=== PATIENT | male | born 2000 | race Caucasian/White ===

== ENCOUNTER 2020-08-15 07:08 | Emergency (ER) | payer OTHER, SELFPAY ==
[2020-08-15 07:31] VITALS: BP 128/77; PULSE 80; RESP 18; TEMP 37; O2SAT 98; BMI 33.9
--- NOTE | 2020-08-15 07:54 | ED_ITS ---
HPI - URI/Sore Throat General Chief Complaint: Upper Respiratory Symptoms Stated Complaint: covid symtoms Time Seen by Provider: 08/15/20 07:54 Source: patient Mode of arrival: ambulatory Limitations: no limitations History of Present Illness HPI Narrative: headache, cough, sore throat all started yesterday. MD elicited complaint: fever, cough and sore throat Onset (ago): day(s) Severity: mild Exacerbating factors: nothing Associated symptoms: fever, chills, headache, nasal congestion and sore throat Related Data Allergies Allergy/AdvReac Type Severity Reaction Status Date / Time No Known Allergies Allergy Verified 08/15/20 07:34 [No Known Allergies*] Review of Systems Constitutional: Constitutional: Reports no additional constitutional complaints Eyes: Eyes: Reports no additional eye complaints ENT: Denies dizziness Cardiovascular: Cardiovascular: Reports no additional cardiovascular complaints Respiratory: Respiratory: Reports as per HPI Gastrointestinal: Gastrointestinal: Reports no additional gastrointestinal complaints Musculoskeletal: Musculoskeletal: Reports no additional musculoskeletal complaints Integumentary/Breasts: Skin/Breast: Denies rash Neurologic: Reports system reviewed and no additional complaints, except as documented, Denies dizziness and Denies Sensory deficit (Neuro) Psychiatric: Psychiatric: Denies anxiety [facility] Past Medical History Medical History Asthma Surgical History No significant past surgical history Social History Social History Advance Directives: No Advance Directives Information Provided: No Physical Exam Vital Signs: Vital Signs: Last Vital Signs Temp 98.6 F 08/15/20 07:31 Pulse 80 08/15/20 07:31 Resp 18 08/15/20 07:31 BP 128/77 08/15/20 07:31 Pulse Ox 98 08/15/20 07:31 Body Mass Index 33.9 Const: General: healthy appearing Nutritional Appearance: average body habitus Orientation/consciousness: oriented to person and patient oriented x3 Limitations: no limitations HENMT: Other: Pharynx red Head: Yes normal to inspection Ears: external ears normal General nose exam: Normal external nose present Throat: Yes posterior oropharynx normal Eyes: General: appearance normal, both eyes and all related structures Neck: Other: supple Neck: Yes normal visual inspection Chest: Chest palpation & inspection: normal inspection of the chest Resp: Auscultation: clear to auscultation bilaterally Cardio: Jugular venous distension: no JVD Rate: regular rate Rhythm: regular rhythm Heart sounds: S1 normal heart sound present and S2 normal heart sound present GI: Inspection: Yes normal to inspection Palpation (GI): Soft to palpation, nontender and No hepatosplenomegaly present Auscultation: normal bowel sounds : General: Yes no CVA tenderness Back/Spine/Pelvis: Back: no CVA tenderness Skin: General skin exam: no rashes or lesions noted Neuro: General: oriented to person and patient oriented x3 Cranial nerves: Yes CN's II-XII intact bilaterally Motor exam (neuro): 5/5 motor strength present throughout Sensory Exam: No Sensory deficit (Neuro) Extrem: General: Yes normal to inspection Psych: Appearance: grossly normal Course Course Course Narrative: patient with likely COVID MDM - URI/Sore Throat MDM Narrative Medical decision making narrative: COVID Differential Diagnosis Differential diagnosis: Likely upper respiratory infection Discharge Plan Discharge Clinical Impression: COVID-19 Patient Disposition: Home, Self-Care Instructions: COVID-19 (Coronavirus Disease 2019) (ED) Additional Instructions: tylenol or motrin for pain Referrals: Physician,Unknown [Primary Care Provider] - 2 days
[2020-08-15 08:42] LABS: COVID-19 Test Negative (Negative)
== END 2020-08-15 08:50 | disposition home or self-care (01) ==
PROVIDERS: Emergency Provider Emergency Medicine
DX: U07.1 COVID-19 (principal); R50.9 Fever, unspecified; R51.9 Headache, unspecified; R05 Cough
CPT/HCPCS: 36415; 87635; 99283

== ENCOUNTER 2024-04-21 21:10 | Emergency (ER) | payer OTHER, SELFPAY ==
--- NOTE | ~2024-04-21 | CT_ITS ---
CLINICAL HISTORY: periumbillical pain CT abdomen and pelvis with contrast Comparison: None Findings: The lung bases are clear. Unremarkable gallbladder and solid organs. No urolithiasis. No bowel obstruction, pneumoperitoneum, or pneumatosis. Mesenteric vessels patent. Pelvic contents unremarkable. Normal appendix. No acute fracture. IMPRESSION: No acute findings. This document has been electronically signed by: Gonzalez Alvarez MD on 04/22/2024 01:06:04
[2024-04-21 21:11] VITALS: BP 115/58; PULSE 94; RESP 24; O2SAT 97; BMI 32.3
[2024-04-21 21:28] LABS: Basophils Absolute Auto 0.1 X10*3/uL (0.0-0.2); Basophils Percent Auto 0.3 % (0-2); Eosinophils Absolute Auto 0.1 X10*3/uL (0.0-0.4); Eosinophils Percent Auto 0.3 % (0-4); Hematocrit 44.5 % (42.0-52.0); Hemoglobin 16.3 g/dl (14.0-18.0); Imm Gran Abs Auto 0.12 X10*3/uL (0.00-0.03); Imm Gran Pct Auto 0.6 % (0.0-0.4); Lymphocytes Absolute Auto 0.8 X10*3/uL (1.2-4.9); Lymphocytes Percent Auto 3.6 % (20-40); MANUAL DIFF FLAG SCAN; Mean Corpuscular HGB Conc 36.6 g/dl (31.0-36.0); Monocytes Absolute Auto 0.9 X10*3/uL (0.1-1.2); Monocytes Percent Auto 4.4 % (2-11); Neutrophils Absolute Auto 19.2 x10*3/uL (2.0-8.3); Neutrophils Percent Auto 90.8 % (45-73); Platelet Count 324 X10*3/uL (160-400); Red Blood Count 5.43 X10*6/uL (4.60-5.80); Red Cell Distribution Width 12.1 % (11.0-16.0); SCAN SMEAR FLAG 1; White Blood Count 21.1 X10*3/uL (4.8-10.8)
[2024-04-21 21:48] LABS: SLIDE REVIEW VERIFIED
[2024-04-21 21:51] LABS: Alanine Aminotransferase 18 U/L (0-40); Albumin Level 4.5 g/dL (3.5-5.0); Alkaline Phosphatase 59 U/L (39-117); Anion Gap 16 (12-20); Aspartate Amino Transferase 27 U/L (5-37); Bilirubin Total 0.9 mg/dL (0.0-1.0); Blood Urea Nitrogen 14 mg/dL (9-16); Calcium 9.5 mg/dL (8.4-10.2); Carbon Dioxide 18 mmol/L (22-29); Chloride 107 mmol/L (96-108); Creatinine Clr Calc Pharmacy 172.6; Estimated Glomerular Filt Rate > 60; Glucose Random 181 mg/dL (60-115); Lipase 12 U/L (8-78); Potassium 3.5 mmol/L (3.3-5.1); Sodium 137 mmol/L (135-145); Total Protein 7.8 g/dL (6.5-8.0)
--- NOTE | 2024-04-21 22:12 | PC.NURSE ---
unable to obtain temp. oral therm not working, pt too diaphoretic for temporal.
[2024-04-21] MEDS: Ondansetron ODT 4 MG TAB.RAPDIS TRANSLINGU (22:28)
[2024-04-22] VITALS: BP 108/59; PULSE 80; RESP 16; TEMP 36.9; O2SAT 99
[2024-04-22] MEDS: Ketorolac Tromethamine 30 MG/ML VIAL IVPUSH (00:12)
[2024-04-22] MEDS: Prochlorperazine Edisylate 10 MG/2 ML VIAL IVPUSH (00:12)
[2024-04-22] MEDS: iohexoL 350 MG/ML 100 ML INFUS..BTL 85 ML IV (00:29)
[2024-04-22] MEDS: Loperamide HCl 2 MG CAPSULE 4 MG PO (00:45)
[2024-04-22] MEDS: 0.9 % Sodium Chloride 1,000 ML 999 ML IVCONT (00:45)
--- NOTE | 2024-04-22 01:30 | ED.NAVMDI ---
HPI - Nausea/Vomiting/Diarrhea General Chief complaint: Nausea/Vomiting/Diarrhea Stated complaint: vomiting Time Seen by Provider: 04/21/24 23:30 Source: patient Mode of arrival: ambulatory Limitations: no limitations History of Present Illness ED Provider: Dr. Deirdre Tomas HPI Narrative: patient comes to the emergency room complaining of diffuse abdominal pain, much worse in the periumbilical area. Patient states that yesterday he had bright stick around 17:30 in shortly after he began having nausea vomiting and diarrhea. Patient states that he is the only 1 who got sick. Patient denies flank pain, denies hematuria or dysuria. Denies chest pain or shortness of breath. Related Data Previous Rx's ?Medication ?Instructions ?Recorded loperamide 2 mg capsule 2 mg PO Q4H PRN loose stool #14 04/22/24 caps ondansetron 4 mg disintegrating 4 mg PO Q6H PRN nausea and 04/22/24 tablet vomiting #14 tabs Allergies Allergy/AdvReac Type Severity Reaction Status Date / Time No Known Allergies Allergy Verified 04/21/24 21:11 [No Known Allergies*] Review of Systems Review of Systems: Constitutional : No Weight loss, No Fever, No Chills, No Night Sweats, No Fatigue, No Malaise ENT/Mouth : No Hearing loss, No Ear Pain, No Nasal Congestion, No Sinus Pain, No Hoarseness, No sore throat, No Rhinorrhea, No Swallowing Difficulty Eyes: No Eye Pain, No Swelling, No Redness, No Foreign Body, No Discharge, No Vision Changes Cardiovascular : No Chest Pain, No SOB, No Dyspnea on Exertion, No Orthopnea, No Edema, No Palpitations Respiratory : No Cough, No Sputum, No Wheezing, No Smoke Exposure, No Dyspnea Gastrointestinal : Complaining of nausea vomiting and diarrhea, complaining of diffuse abdominal pain and cramping Pain, No Hematochezia, No Melena Genitourinary : no irregular bleeding, No Dysuria, No Urinary Frequency, No Hematuria, No Urinary Incontinence, No Urgency, No Flank Pain, No Urinary Flow Changes, No Hesitancy Musculoskeletal : No joint pain, No Myalgias, No Joint Swelling Skin : No Skin Lesions, No rash Neuro : No Weakness, No Numbness, No Paresthesias, No Loss of Consciousness, No Dizziness, No Headache Psych : No Anxiety/Panic, No Depression, No SI/HI/AH/VH, No Social Issues, Heme/Lymph: No Bruising, No Bleeding,No Lymphadenopathy Endocrine : No Polyuria, No Polydipsia, No Temperature Intolerance [facility] Past Medical History Medical History Asthma Surgical History No significant past surgical history Social History Social History Alcohol intake: current Alcohol intake frequency: holidays/special occasions only Smoked in Last 30 Days: No Substance Use Type: Marijuana Advance Directives: No Do you have a plan to hurt others: No Plan Physical Exam Vital Signs: Vital Signs: Last Vital Signs Temp 98.5 F 04/22/24 00:00 Pulse 80 04/22/24 00:00 Resp 16 04/22/24 00:00 BP 108/59 L 04/22/24 00:00 Pulse Ox 99 04/22/24 00:00 O2 Del Method Room Air 04/22/24 00:00 BMI result Body Mass Index 32.3 Const: Other: Appearance: Alert. Oriented X3. No acute distress. Eyes: Pupils equal, round and reactive to light. ENT: Pharynx normal. Neck: Normal inspection. Neck supple. No lymph nodes noted. No crepitus CVS: Normal heart rate and rhythm. Pulses normal. Normal S1 and S2 Respiratory: No respiratory distress. Breath sounds normal. No Wheezing. No rales Abdomen: soft, nondistended, mildly tender to palpation in periumbilical area, no right lower quadrant tenderness, no rebound or guarding. Skin: Skin warm and dry. Normal skin color. Normal skin turgor. Extremities: No lower extremity edema. No Lacerations. No Rash Neuro: Oriented X 3. No motor deficit. No sensory deficit. Moving all extremities. No slurred speech. CN 2 through 12 grossly intact Psych: calm, cooperative, normal affect Medications Administered Discontinued Medications Generic Name Dose Route Start Last Admin Trade Name Freq PRN Reason Stop Dose Admin Sodium Chloride 1,000 mls @ 999 mls/hr 04/21/24 23:56 04/22/24 00:45 Ns IVCONT 04/22/24 00:56 999 mls/hr .Q1H1M ONE Administration Iohexol 85 ml 04/22/24 00:28 04/22/24 00:29 Iohexol 350 Mg/Ml 100 Ml Infus..Btl IV 04/22/24 00:29 85 ml ONCE ONE Administration Ketorolac Tromethamine 30 mg 04/21/24 23:56 04/22/24 00:12 Ketorolac Tromethamine 30 Mg/Ml Vial IVPUSH 04/21/24 23:57 30 mg ONCE ONE Administration Loperamide HCl 4 mg 04/21/24 23:56 04/22/24 00:45 Loperamide Hcl 2 Mg Capsule PO 04/21/24 23:57 4 mg ONCE ONE Administration Ondansetron HCl 4 mg 04/21/24 22:15 04/21/24 22:28 Ondansetron Odt 4 Mg Tab.Rapdis TRANSLINGU 04/21/24 22:16 4 mg ONCE ONE Administration Prochlorperazine Edisylate 10 mg 04/21/24 23:56 04/22/24 00:12 Prochlorperazine Edisylate 10 Mg/2 Ml Vial IVPUSH 04/21/24 23:57 10 mg ONCE ONE Administration Medical Decision Making Medical Decision Making [facility] Narrative: My interpretation of labs: Patient's white blood cell count 21.1, likely reactive leukocytosis. No significant abnormality and chemistry. My interpretation of CT scan, no obvious abnormality. After IV fluids, nausea medication and diarrhea medication, patient feeling much better. In the emergency room patient has not had any episodes of vomiting or diarrhea. Patient states that the abdominal pain significantly improved Differential Diagnosis Differential Diagnoses: The differential diagnosis associated with the presentation includes ( gastroenteritis, enteritis, colitis, appendicitis) Lab Data [facility] Lab Attestation statement: I reviewed the patient's lab results. 04/21/24 21:19 04/21/24 21:19 Labs: Lab Results 04/21/24 Range/Units 21:19 WBC 21.1 H (4.8-10.8) X10*3/uL RBC 5.43 (4.60-5.80) X10*6/uL Hgb 16.3 (14.0-18.0) g/dl Hct 44.5 (42.0-52.0) % MCV 82.0 (80.0-98.0) fL MCH 30.0 (27.0-33.0) pg MCHC 36.6 H (31.0-36.0) g/dl RDW 12.1 (11.0-16.0) % Plt Count 324 (160-400) X10*3/uL MPV 9.0 L (9.4-12.4) fL Immature Gran % (Auto) 0.6 H (0.0-0.4) % Neut % (Auto) 90.8 H (45-73) % Lymph % (Auto) 3.6 L (20-40) % [place] % (Auto) 4.4 (2-11) % Eos % (Auto) 0.3 (0-4) % Baso % (Auto) 0.3 (0-2) % Lymph # (Auto) 0.8 L (1.2-4.9) X10*3/uL [place] # (Auto) 0.9 (0.1-1.2) X10*3/uL Eos # (Auto) 0.1 (0.0-0.4) X10*3/uL Baso # (Auto) 0.1 (0.0-0.2) X10*3/uL Abs Immat Gran (auto) 0.12 H (0.00-0.03) X10*3/uL Absolute Neuts (auto) 19.2 H (2.0-8.3) x10*3/uL Absolute Nucleated RBC 0.000 (0.0-0.012) X10*3/uL Nucleated RBC % (auto) 0.0 (0.0-0.2) /100WBC Smear Tech's Comments VERIFIED Sodium 137 (135-145) mmol/L Potassium 3.5 (3.3-5.1) mmol/L Chloride 107 (96-108) mmol/L Carbon Dioxide 18 L (22-29) mmol/L Anion Gap 16 (12-20) BUN 14 (9-16) mg/dL Creatinine 0.69 (0.5-1.4) mg/dL Estim Creat Clear Calc 172.6 Estimated GFR > 60 Random Glucose 181 H (60-115) mg/dL Calcium 9.5 (8.4-10.2) mg/dL Total Bilirubin 0.9 (0.0-1.0) mg/dL AST 27 (5-37) U/L ALT 18 (0-40) U/L Alkaline Phosphatase 59 (39-117) U/L Total Protein 7.8 (6.5-8.0) g/dL Albumin 4.5 (3.5-5.0) g/dL Lipase 12 (8-78) U/L Independent Interpretation I performed an independent interpretation of an: CT Scan Radiology Impression Discussion of test interpretation with radiology: I have reviewed the radiologist's reading. Radiologist Impression: The lung bases are clear. Unremarkable gallbladder and solid organs. No urolithiasis. No bowel obstruction, pneumoperitoneum, or pneumatosis. Mesenteric vessels patent. Pelvic contents unremarkable. Normal appendix. No acute fracture. IMPRESSION: No acute findings Critical Care Time Critical Care Time Critical Care Time: Yes Total Critical Care Time: 35 Attestation: I have personally provided critical care time. Time includes review of lab data, radiology results, discussion with consultants, and monitoring for potential decompensation. Intervention performed as documented. Discharge Plan Discharge Clinical Impression: Gastroenteritis, Acute dehydration Patient Disposition: Home, Self-Care Instructions: Gastroenteritis (ED) Additional Instructions: Please follow-up with your primary care physician tomorrow. If you have any worsening or new symptoms, please return to the emergency room or call 911 Prescriptions: New ondansetron 4 mg tablet,disintegrating 4 mg PO Q6H PRN (Reason: nausea and vomiting) Qty: 14 0RF loperamide 2 mg capsule 2 mg PO Q4H PRN (Reason: loose stool) Qty: 14 0RF Rx Instructions: administer after each loose stool until symptoms controlled; do not exceed 8 mg per 24 hrs Stand Alone Forms: Work/School Release Print Language: Kyrgyz
[2024-04-22 02:00] VITALS: BP 106/72; PULSE 93; RESP 16; TEMP 36.8; O2SAT 96
[2024-04-22 02:24] VITALS: BP 105/65; PULSE 87; RESP 16; TEMP 37.2; O2SAT 96
== END 2024-04-22 02:37 | disposition home or self-care (01) ==
PROVIDERS: Emergency Provider Emergency Medicine
DX: K52.9 Noninfective gastroenteritis and colitis, unspecified (principal); E86.0 Dehydration; R10.33 Periumbilical pain; J45.909 Unspecified asthma, uncomplicated
CPT/HCPCS: 36415; 74177; 80053; 83690; 85025; 96374; 96375; 99285; J0737; J1885; Q9967

== ENCOUNTER → 2024-04-22 | Outpatient (BNV) | payer OTHER, SELFPAY | PROVIDERS: Emergency Provider Emergency Medicine; Visit Provider Radiology Diagnostic Radiology | DX: R10.33 Periumbilical pain (principal) | CPT/HCPCS: 74177 ==